=== PATIENT | female | born 1995 | race Caucasian/White ===

== ENCOUNTER 2018-07-11 14:06 | Outpatient (CLI) | payer MEDICAID ==
[2018-07-11 16:02] LABS: ADD MAN DIFF? NO
[2018-07-11 16:04] LABS: BASOPHILS % 0.2 % (0.0-2.0); EOSINOPHILS % 0.3 % (0.0-7.0); HEMATOCRIT 35.3 % (37.0-47.0); HEMOGLOBIN 11.8 g/dl (12.0-16.0); LYMPHOCYTES # 1.1 10^3/ul (0.8-2.9); LYMPHOCYTES % 12.3 % (15.0-51.0); MEAN CORPUSCULAR HEMOGLOBIN 29.6 pg (29.0-33.0); MEAN CORPUSCULAR HGB CONC 33.4 g/dl (32.0-37.0); MEAN CORPUSCULAR VOLUME 88.7 fl (82.0-101.0); MEAN PLATELET VOLUME 12.7 fl (7.4-10.4); MONOCYTE # 0.4 10^3/ul (0.3-0.9); MONOCYTES % 4.6 % (0.0-11.0); NEUTROPHIL # 7.4 10^3/ul (1.6-7.5); NEUTROPHILS % 81.9 % (39.0-77.0); PLATELET COUNT 171 10^3/UL (140-415); RED BLOOD COUNT 3.98 10^6/ul (4.20-5.40); RED CELL DISTRIBUTION WIDTH 14.4 % (11.5-14.5)
[2018-07-11 16:04] LABS: WHITE BLOOD COUNT 9.1 10^3/ul (4.8-10.8)
[2018-07-11 16:16] LABS: ADD UMIC YES; UR ASCORBIC ACID NEGATIVE (NEGATIVE); UR BACTERIA FEW /HPF (NONE SEEN); UR BILIRUBIN (Dip) NEGATIVE (NEGATIVE); UR BLOOD (Dip) NEGATIVE (NEGATIVE); UR CALCIUM OXALATE CRYSTAL FEW /HPF (NONE SEEN); UR CLARITY SLIGHTLY CLOUDY (CLEAR); UR COLOR YELLOW (YELLOW); UR GLUCOSE (Dip) NEGATIVE (NEGATIVE); UR KETONES (Dip) NEGATIVE (NEGATIVE); UR LEUKOCYTE ESTERASE (Dip) NEGATIVE Leu/ul (NEGATIVE); UR NITRITE (Dip) NEGATIVE (NEGATIVE); UR RBC 4 /HPF (0-5); UR SPECIFIC GRAVITY (Dip) 1.018 (1.003-1.030); UR SQUAMOUS EPITHELIAL CELL FEW /HPF (FEW); UR TOTAL PROTEIN (Dip) 1+ mg/dl (NEGATIVE); UR UROBILINOGEN (Dip) NEGATIVE (NEGATIVE); UR WBC 2 /HPF (0-5)
[2018-07-11 16:23] LABS: ALANINE AMINOTRANSFERASE 15 IU/L (13-69); ALBUMIN 3.7 g/dl (3.3-4.9); ALBUMIN/GLOBULIN RATIO 0.97; ALKALINE PHOSPHATASE 110 IU/L (42-121); ANION GAP 9 (5-13); ASPARTATE AMINO TRANSFERASE 14 IU/L (15-46); BILIRUBIN,INDIRECT 0.2 mg/dl (0-1.1); BILIRUBIN,TOTAL 0.2 mg/dl (0.2-1.3); BLOOD UREA NITROGEN 6 mg/dl (7-20); CALCIUM 9.6 mg/dl (8.4-10.2); CARBON DIOXIDE 21 mmol/L (21-31); CHLORIDE 108 mmol/L (97-110); CREATININE 0.35 mg/dl (0.44-1.00); Estimated GFR > 60 mL/min (>60); GLUCOSE 93 mg/dl (70-220); POTASSIUM 4.2 mmol/L (3.5-5.1); SODIUM 138 mmol/L (135-144); TOTAL PROTEIN 7.5 g/dl (6.1-8.1)
== END 2018-07-11 18:15 | disposition home or self-care (01) ==
LOC: OBT 14:06 → L-D 14:07 → OBT 18:15
DX: O26.892 Other specified pregnancy related conditions, second trimester (principal); R11.0 Nausea; Z3A.26 26 weeks gestation of pregnancy
CPT/HCPCS: 76817; 76818; 80053; 81001; 82731; 85025

== ENCOUNTER 2018-08-06 23:51 | Emergency (ER) | payer MEDICAID ==
[2018-08-07 01:54] LABS: ADD MAN DIFF? NO
[2018-08-07 01:55] LABS: WHITE BLOOD COUNT 7.1 10^3/ul (4.8-10.8)
[2018-08-07 01:55] LABS: BASOPHILS % 0.4 % (0.0-2.0); EOSINOPHILS # 0.2 10^3/ul (0.0-0.5); EOSINOPHILS % 2.3 % (0.0-7.0); HEMATOCRIT 38.2 % (37.0-47.0); HEMOGLOBIN 12.7 g/dl (12.0-16.0); LYMPHOCYTES # 1.9 10^3/ul (0.8-2.9); LYMPHOCYTES % 26.6 % (15.0-51.0); MEAN CORPUSCULAR HEMOGLOBIN 29.4 pg (29.0-33.0); MEAN CORPUSCULAR HGB CONC 33.2 g/dl (32.0-37.0); MEAN CORPUSCULAR VOLUME 88.4 fl (82.0-101.0); MEAN PLATELET VOLUME 12.8 fl (7.4-10.4); MONOCYTE # 0.5 10^3/ul (0.3-0.9); MONOCYTES % 6.8 % (0.0-11.0); NEUTROPHIL # 4.5 10^3/ul (1.6-7.5); NEUTROPHILS % 63.5 % (39.0-77.0); PLATELET COUNT 163 10^3/UL (140-415); RED BLOOD COUNT 4.32 10^6/ul (4.20-5.40); RED CELL DISTRIBUTION WIDTH 14.1 % (11.5-14.5)
[2018-08-07 02:15] LABS: ALANINE AMINOTRANSFERASE 36 IU/L (13-69); ALBUMIN/GLOBULIN RATIO 1.08; ALKALINE PHOSPHATASE 149 IU/L (42-121); ANION GAP 11 (5-13); ASPARTATE AMINO TRANSFERASE 24 IU/L (15-46); BILIRUBIN,INDIRECT 0.3 mg/dl (0-1.1); BILIRUBIN,TOTAL 0.3 mg/dl (0.2-1.3); BLOOD UREA NITROGEN 7 mg/dl (7-20); CALCIUM 9.8 mg/dl (8.4-10.2); CARBON DIOXIDE 24 mmol/L (21-31); CHLORIDE 104 mmol/L (97-110); CREATININE 0.35 mg/dl (0.44-1.00); Estimated GFR > 60 mL/min (>60); GLUCOSE 90 mg/dl (70-220); INR 0.87; POTASSIUM 3.9 mmol/L (3.5-5.1); PROTIME 11.9 Sec (11.9-14.9); PT RATIO 0.9; SODIUM 139 mmol/L (135-144); TOTAL PROTEIN 7.7 g/dl (6.1-8.1)
[2018-08-07 02:16] LABS: PARTIAL THROMBOPLASTIN TIME 30.6 Sec (23.0-35.0)
== END 2018-08-07 02:46 | disposition home or self-care (01) ==
LOC: FTE 23:51
DX: O26.893 Other specified pregnancy related conditions, third trimester (principal); O99.613 Diseases of the digestive system complicating pregnancy, third trimester; K64.9 Unspecified hemorrhoids; R21 Rash and other nonspecific skin eruption; Z3A.30 30 weeks gestation of pregnancy
CPT/HCPCS: 80053; 85025; 85610; 85730; 99283

== ENCOUNTER 2018-10-11 17:43 | Inpatient (IN) | payer MEDICAID ==
[2018-10-11] MEDS ORDERED: CARBOPROST 250 MCG INJ IM (20:00)
[2018-10-11] MEDS ORDERED: OXYTOCIN 30 UNITS/LR 500 ML IV (20:00)
[2018-10-11] MEDS ORDERED: BUTORPHANOL 2 MG INJ IV ×3 (20:00)
[2018-10-11] MEDS ORDERED: METHYLERGONOVINE 0.2 MG INJ IM (20:00)
[2018-10-11] MEDS ORDERED: LIDOCAINE 1% (MPF) 30 ML INJ INJ (20:00)
[2018-10-11] MEDS ORDERED: MISOPROSTOL 200 MCG TAB PR (20:00)
[2018-10-11] MEDS: AMPICILLIN 2 GM/NS (PMX) 100 ML IV (20:44)
[2018-10-11 20:45] LABS: ADD MAN DIFF? NO
[2018-10-11 20:50] LABS: ABNORMAL IP MESSAGE 1; BASOPHILS % 0.3 % (0.0-2.0); EOSINOPHILS % 0.5 % (0.0-7.0); HEMATOCRIT 39.2 % (37.0-47.0); LYMPHOCYTES # 1.3 10^3/ul (0.8-2.9); LYMPHOCYTES % 20.2 % (15.0-51.0); MEAN CORPUSCULAR HEMOGLOBIN 30.2 pg (29.0-33.0); MEAN CORPUSCULAR HGB CONC 33.2 g/dl (32.0-37.0); MEAN PLATELET VOLUME 14.1 fl (7.4-10.4); MONOCYTE # 0.4 10^3/ul (0.3-0.9); MONOCYTES % 5.5 % (0.0-11.0); NEUTROPHIL # 4.8 10^3/ul (1.6-7.5); PLATELET COUNT 121 10^3/UL (140-415); RED BLOOD COUNT 4.31 10^6/ul (4.20-5.40)
[2018-10-11 20:50] LABS: WHITE BLOOD COUNT 6.6 10^3/ul (4.8-10.8)
[2018-10-11 21:09] LABS: INR 0.82; PROTIME 11.4 Sec (11.9-14.9); PT RATIO 0.9
[2018-10-11 21:10] LABS: PARTIAL THROMBOPLASTIN TIME 28.6 Sec (23.0-35.0)
[2018-10-11] MEDS: LACTATED RINGER'S 1,000 ML IV ×2 (21:59→23:22)
[2018-10-11] MEDS ORDERED: FENTAnyl 2MCG/ML-ROPIV 0.2% 100 ML (23:16)
[2018-10-11] MEDS ORDERED: NALOXONE (0.4 MG/ML) INJ IV (23:30)
[2018-10-11] MEDS: ACETAMINOPHEN 1000MG/100ML IV 100 ML IVPB (23:50)
[2018-10-12] MEDS: AMPICILLIN 1 GM/NS (PMX) 50 ML IV ×4 (01:21→11:00)
[2018-10-12] MEDS: FENTAnyl 2MCG/ML-ROPIV 0.2% 100 ML BAG EPI (02:24)
[2018-10-12 06:43] LABS: HEPATITIS B SURFACE ANTIGEN NEGATIVE (NEGATIVE)
[2018-10-12] MEDS: LACTATED RINGER'S 1,000 ML IV ×3 (07:26→18:42)
[2018-10-12] MEDS: OXYTOCIN 10 UNIT INJ IM (08:00)
[2018-10-12] MEDS: OXYTOCIN 30 UNITS/LR 500 ML IV ×2 (09:29→11:15)
[2018-10-12] MEDS ORDERED: ONDANSETRON 4 MG TAB PO (10:00)
[2018-10-12] MEDS ORDERED: MAGNESIUM HYDROXIDE 30ML CUP PO (10:00)
[2018-10-12] MEDS ORDERED: ONDANSETRON 4 MG INJ IV (10:00)
[2018-10-12] MEDS ORDERED: DIPHENHYDRAMINE 50 MG INJ IV (10:00)
[2018-10-12] MEDS ORDERED: OXYTOCIN 30 UNITS/LR 500 ML IV (10:00)
[2018-10-12] MEDS ORDERED: MISOPROSTOL 200 MCG TAB PR (10:00)
[2018-10-12] MEDS ORDERED: CARBOPROST 250 MCG INJ IM (10:00)
[2018-10-12] MEDS ORDERED: SENNA/DOCUSATE NA (8.6MG/50MG) TAB PO (10:00)
[2018-10-12] MEDS ORDERED: DIPHENHYDRAMINE 25 MG CAP PO (10:00)
[2018-10-12] MEDS ORDERED: NA PHOSPHATE/BIPHOS 133 ML ENEMA PR (10:00)
[2018-10-12] MEDS: MINERAL OIL LIGHT 10 ML VIAL TOP (10:30)
[2018-10-12] MEDS: LACTATED RINGER'S 1,000 ML IV* ×2 (10:30→15:53)
[2018-10-12] MEDS: IBUPROFEN 600 MG TAB PO ×3 (11:41→23:14)
[2018-10-12] MEDS: BENZOCAINE 20% 56 ML SPRAY TOP (11:42)
[2018-10-12] MEDS: WITCH HAZEL/GLYCERIN PAD PR (11:42)
[2018-10-12] MEDS: DIBUCAINE 1% 30 GM OINT TOP (11:42)
[2018-10-12] MEDS: HYDROCODONE/APAP (5/325) TAB PO (15:52)
[2018-10-12 19:28] LABS: RAPID PLASMA REAGIN NONREACTIVE (NR)
[2018-10-12] MEDS: SENNA/DOCUSATE NA (8.6MG/50MG) TAB PO (21:01)
[2018-10-12] MEDS: LANOLIN HPA 1 PKT TOP (21:01)
[2018-10-13] MEDS: LACTATED RINGER'S 1,000 ML IV* ×3 (01:20→12:08)
[2018-10-13] MEDS: LACTATED RINGER'S 1,000 ML IV ×2 (01:22→12:08)
[2018-10-13] MEDS: IBUPROFEN 600 MG TAB PO ×4 (05:32→23:42)
[2018-10-13 07:18] LABS: ADD MAN DIFF? NO
[2018-10-13 07:20] LABS: WHITE BLOOD COUNT 6.9 10^3/ul (4.8-10.8)
[2018-10-13 07:20] LABS: ABNORMAL IP MESSAGE 1; BASOPHILS % 0.3 % (0.0-2.0); EOSINOPHILS % 0.4 % (0.0-7.0); HEMATOCRIT 30.6 % (37.0-47.0); HEMOGLOBIN 10.2 g/dl (12.0-16.0); LYMPHOCYTES % 28.8 % (15.0-51.0); MEAN CORPUSCULAR HEMOGLOBIN 30.4 pg (29.0-33.0); MEAN CORPUSCULAR HGB CONC 33.3 g/dl (32.0-37.0); MEAN CORPUSCULAR VOLUME 91.1 fl (82.0-101.0); MEAN PLATELET VOLUME 13.8 fl (7.4-10.4); MONOCYTE # 0.4 10^3/ul (0.3-0.9); MONOCYTES % 5.2 % (0.0-11.0); NEUTROPHIL # 4.5 10^3/ul (1.6-7.5); NEUTROPHILS % 64.7 % (39.0-77.0); PLATELET COUNT 116 10^3/UL (140-415); RED BLOOD COUNT 3.36 10^6/ul (4.20-5.40); RED CELL DISTRIBUTION WIDTH 14.9 % (11.5-14.5)
[2018-10-13 07:25] LABS: POSITIVE DIFF @See below
[2018-10-13] MEDS: SENNA/DOCUSATE NA (8.6MG/50MG) TAB PO ×2 (11:29→21:03)
[2018-10-13] MEDS: HYDROCODONE/APAP (5/325) TAB PO (15:21)
[2018-10-14] MEDS: IBUPROFEN 600 MG TAB PO ×2 (05:34→11:24)
[2018-10-14] MEDS: SENNA/DOCUSATE NA (8.6MG/50MG) TAB PO (09:00)
[2018-10-14] MEDS: DIPHTH/TET/ACEL PERTUSS (ADULT) 0.5 ML VIAL IM* (09:52)
[2018-10-14] MEDS: MEASLES,MUMPS,RUBELLA VACCINE INJ SC* (09:52)
[2018-10-14] MEDS: VARICELLA VACCINE LIVE/PF 1,350 UNIT/0.5 ML ML SC* (09:53)
[2018-10-14] MEDS: HYDROCODONE/APAP (5/325) TAB PO (11:24)
== END 2018-10-14 12:20 | disposition home or self-care (01) | DRG 807 ==
LOC: OBT 17:43 → L-D 17:44 → PP1 10-12 09:48 → OBT 18:14 → L-D 18:44
PROVIDERS: Specialist
PROC: 10E0XZZ Delivery of Products of Conception, External Approach (ICD-10-PCS; principal; 2018-10-12)
PROC: 0HQ9XZZ Repair Perineum Skin, External Approach (ICD-10-PCS; 2018-10-12)
DX: O48.0 Post-term pregnancy (principal); O70.0 First degree perineal laceration during delivery; Z37.0 Single live birth; Z3A.40 40 weeks gestation of pregnancy
CPT/HCPCS: 62322; 72170; 76815; 85025; 85610; 85730; 86592; 86850; 86900; 86901; 87340; 90716

== ENCOUNTER 2018-10-18 15:56 | Emergency (ER) | payer MEDICAID | END 2018-10-18 16:13 | disposition home or self-care (01) | LOC: E/R 16:13 | DX: O99.89 Other specified diseases and conditions complicating pregnancy, childbirth and the puerperium (principal); R20.0 Anesthesia of skin | CPT/HCPCS: 99283; Z7502 ==